=== PATIENT | female | born 1950 | race Caucasian/White ===

== ENCOUNTER → 2017-09-23 | Outpatient (CLI) | payer MEDICARE, OTHER ==
--- NOTE | 2017-09-27 08:48 | MM ---
Reason for exam: screening (asymptomatic). Last mammogram was performed 2 years and 2 months ago. History: Patient is postmenopausal. Left Breast Aspiration of the left breast. Took hormonal contraceptives for 2 years. Physical Findings: A clinical breast exam by your physician is recommended on an annual basis and results should be correlated with mammographic findings. MG 3D Screening Mammo W/Cad Bilateral CC and MLO view(s) were taken. Prior study comparison: July 11, 2015, bilateral MG 3d screening mammo w/cad. August 03, 2012, bilateral digital screening mammo w/CAD. The breast tissue is heterogeneously dense. This may lower the sensitivity of mammography. No significant changes when compared with prior studies. ASSESSMENT: Negative, BI-RAD 1 RECOMMENDATION: Routine screening mammogram of both breasts in 1 year.
== END | disposition home or self-care (01) ==
LOC: RADMAMWWP 09:08
PROVIDERS: ATTEND Family Medicine
DX: Z12.31 Encounter for screening mammogram for malignant neoplasm of breast (principal)
CPT/HCPCS: 77063; 77067

== ENCOUNTER → 2019-05-29 | Outpatient (CLI) | payer MEDICARE ==
--- NOTE | 2019-05-31 09:46 | MM ---
Reason for exam: screening (asymptomatic). Last mammogram was performed 1 year and 8 months ago. History: Patient is postmenopausal. Left Breast Aspiration of the left breast. Took hormonal contraceptives for 2 years. Physical Findings: A clinical breast exam by your physician is recommended on an annual basis and results should be correlated with mammographic findings. MG 3D Screening Mammo W/Cad Bilateral CC and MLO view(s) were taken. XCCL view(s) were taken of the left breast. Prior study comparison: September 23, 2017, bilateral MG 3d screening mammo w/cad. July 11, 2015, bilateral MG 3d screening mammo w/cad. The breast tissue is heterogeneously dense. This may lower the sensitivity of mammography. No significant changes when compared with prior studies. ASSESSMENT: Benign, BI-RAD 2 RECOMMENDATION: Routine screening mammogram of both breasts in 1 year.
== END | disposition home or self-care (01) ==
LOC: RADMAMWWP 13:44
PROVIDERS: ATTEND Family Medicine
DX: Z12.31 Encounter for screening mammogram for malignant neoplasm of breast (principal)
CPT/HCPCS: 77063; 77067

== ENCOUNTER 2019-06-06 10:13 | Day surgery (SDC) | payer MEDICARE ==
--- NOTE | 2019-06-06 08:54 | P.GSHP ---
History of Present Illness H&P Date: 06/06/19 CHIEF COMPLAINT: Colon screen HISTORY OF PRESENT ILLNESS: The patient is a 69-year-old female who presents for colon screen. Lower endoscopy was offered for further evaluation and management. PAST MEDICAL HISTORY: Please see list. PAST SURGICAL HISTORY: Please see list. MEDICATIONS: Please see list. ALLERGIES: Please see list. SOCIAL HISTORY: No illicit drug use FAMILY HISTORY: No reports of Crohn disease or ulcerative colitis. REVIEW OF ORGAN SYSTEMS: CONSTITUTIONAL: No reports of fevers or chills. PHYSICAL EXAM: VITAL SIGNS: Stable GENERAL: Well-developed pleasant in no acute distress. HEENT: No scleral icterus. Extraocular movements grossly intact. Moist buccal mucosa. NECK: Supple without lymphadenopathy. CHEST: Unlabored respirations. Equal bilateral excursions. CARDIOVASCULAR: Regular rate and rhythm. Distal 2+ pulses. ABDOMEN: Soft, nontender, nondistended. MUSCULOSKELETAL: No clubbing, cyanosis, or edema. ASSESSMENT: 1. Colon screen. PLAN: 1. Recommend proceeding with a lower endoscopy Past Medical History Past Medical History: GERD/Reflux, Hyperlipidemia, Hypertension, Sleep Apnea/CPAP/BIPAP Additional Past Medical History / Comment(s): SVT,uses cpap History of Any Multi-Drug Resistant Organisms: None Reported Past Surgical History: Adenoidectomy, Orthopedic Surgery, Tonsillectomy Additional Past Surgical History / Comment(s): colonoscopy Past Anesthesia/Blood Transfusion Reactions: Motion Sickness Additional Past Anesthesia/Blood Transfusion Reaction / Comment(s): no hx blood transfusion Smoking Status: Never smoker Past Alcohol Use History: Occasional Past Drug Use History: None Reported - Past Family History Father Family Medical History: Myocardial Infarction (DE) Additional Family Medical History / Comment(s): passe away at age 52 Mother Family Medical History: Osteoarthritis (OA), Thyroid Disorder Additional Family Medical History / Comment(s): living 95 Medications and Allergies Home Medications Medication Instructions Recorded Confirmed Type Fenofibrate 160 mg PO DAILY 04/12/16 04/14/16 History Multivit-Min/Iron/Folic/Lutein 1 each PO DAILY 04/12/16 04/12/16 History [Centrum Silver Women Tablet] Pravastatin Sodium 40 mg PO HS 04/12/16 04/14/16 History RABEprazole SODIUM [Aciphex] 20 mg PO QAM 04/12/16 04/14/16 History Triamterene-Hctz 37.5-25Mg 1 cap PO DAILY 04/12/16 04/14/16 History [Dyazide 37.5-25 Capsule] Verapamil HCl [Verapamil ER Pm] 100 mg PO HS 04/12/16 04/14/16 History buPROPion HCL [Bupropion HCl Sr] 150 mg PO QAM 04/12/16 04/14/16 History Allergies Allergy/AdvReac Type Severity Reaction Status Date / Time niacin Allergy "hot Verified 04/12/16 14:59 flashes" thimerosal Allergy "eyes burn Verified 04/12/16 14:59 and water with swelling" chlorthalidone AdvReac Rapid Verified 04/12/16 15:14 Heart Rate
[2019-06-06 11:01] VITALS: TEMP 97.9
[2019-06-06] MEDS ORDERED: LIDOCAINE 1% 20 ML VIAL (10MG/ML) FOR IV START INTRADERMA ONE (11:06)
[2019-06-06] MEDS ORDERED: LACTATED RINGERS 1,000 ML IV ONE (11:06)
[2019-06-06] MEDS ORDERED: PROPOFOL 10 MG/ML 20 ML VIAL IV ONE (11:50)
--- NOTE | 2019-06-06 12:35 | P.PCN ---
Date of Procedure: 06/06/19 Description of Procedure: PREOPERATIVE DIAGNOSIS: Personal history of colon polyps Change in bowel habits POSTOPERATIVE DIAGNOSIS: Personal history of colon polyps Change in bowel habits Diverticulosis, scattered. OPERATION: Colonoscopy to the ileocecal valve and appendiceal orifice. SURGEON: Sunita Locke MD. ANESTHESIA: MAC. INDICATIONS: The patient is a 69-year-old female who presents with change in bowel habits and personal history of colon polyps. Last colonoscopy 3 years ago. Benefits and risks were described and informed consent was obtained. DESCRIPTION OF PROCEDURE: The patient had undergone Gatorade, MiraLAX and Dulcolax prep. She had been brought into the operating room and laid in the left lateral decubitus position. After adequate intravenous sedation, the rectum was examined with 2% lidocaine jelly. No external hemorrhoids were encountered. The rectal tone was within normal limits. Abdominal pressure was used to advanced through a very tortuous sigmoid colon. No lesions were palpated in the rectal vault. An Olympus colonoscope was advanced until the ileocecal valve and appendiceal orifice were clearly viewed. The prep was excellent with clear visualization of the mucosal folds. The scope was removed with visualization of each mucosal fold. Sigmoid diverticulosis was encountered. No colonic polyps were found. No evidence of focal colitis was found. Retroflexion of the scope demonstrated grade 1 internal hemorrhoids without active bleeding or inflammation. The colon was desufflated. The patient had tolerated the procedure well. Withdrawal time was over 6 minutes. FINDINGS: Aronchick preparation quality scale 1 (1-5) Internal hemorrhoids, grade 1 No external prolapsed hemorrhoids. No arteriovenous malformations. No adenomatous polyps. No focal colitis. Sigmoid diverticulosis, moderate Highly redundant sigmoid colon RECOMMENDATIONS: Lower endoscopy in 3 years, 2021 or Cologuard Plan - Discharge Summary New Discharge Prescriptions: No Action buPROPion HCL [Bupropion HCl Sr] 150 mg PO QAM Triamterene-Hctz 37.5-25Mg [Dyazide 37.5-25 Capsule] 1 cap PO DAILY Multivit-Min/Iron/Folic/Lutein [Centrum Silver Women Tablet] 1 each PO DAILY Fenofibrate 160 mg PO DAILY Verapamil HCl [Verapamil ER Pm] 100 mg PO HS RABEprazole SODIUM [Aciphex] 20 mg PO QAM Pravastatin Sodium 40 mg PO HS Discharge Medication List Fenofibrate 160 mg PO DAILY 04/12/16 [History] Multivit-Min/Iron/Folic/Lutein [Centrum Silver Women Tablet] 1 each PO DAILY 04/12/16 [History] Pravastatin Sodium 40 mg PO HS 04/12/16 [History] RABEprazole SODIUM [Aciphex] 20 mg PO QAM 04/12/16 [History] Triamterene-Hctz 37.5-25Mg [Dyazide 37.5-25 Capsule] 1 cap PO DAILY 04/12/16 [History] Verapamil HCl [Verapamil ER Pm] 100 mg PO HS 04/12/16 [History] buPROPion HCL [Bupropion HCl Sr] 150 mg PO QAM 04/12/16 [History] Follow up Appointment(s)/Referral(s): Sunita Locke MD [STAFF PHYSICIAN] - 06/12/19 Patient Instructions/Handouts: Diverticulosis Diet (GEN), Diverticulosis (DC) Activity/Diet/Wound Care/Special Instructions: Recommend Cologaurd in 3 years or colonoscopy Discharge Disposition: HOME SELF-CARE
[2019-06-06 13:11] VITALS: RESP 17
[2019-06-06 13:29] VITALS: BP 127/81; PULSE 77
== END 2019-06-06 13:42 | disposition home or self-care (01) ==
LOC: ORWHC2ENDO 10:13
PROVIDERS: ATTEND Surgery Plastic and Reconstructive Surgery
DX: R19.4 Change in bowel habit (principal); K64.8 Other hemorrhoids; K57.30 Diverticulosis of large intestine without perforation or abscess without bleeding; Q43.8 Other specified congenital malformations of intestine; Z86.010 Personal history of colon polyps; K21.9 Gastro-esophageal reflux disease without esophagitis; E78.5 Hyperlipidemia, unspecified; I10 Essential (primary) hypertension; G47.30 Sleep apnea, unspecified; I47.1 Supraventricular tachycardia; F32.9 Major depressive disorder, single episode, unspecified; Z99.89 Dependence on other enabling machines and devices; Z90.89 Acquired absence of other organs; Z98.890 Other specified postprocedural states; Z91.89 Other specified personal risk factors, not elsewhere classified; Z79.899 Other long term (current) drug therapy; Z88.8 Allergy status to other drugs, medicaments and biological substances; Z91.048 Other nonmedicinal substance allergy status; Z82.49 Family history of ischemic heart disease and other diseases of the circulatory system; Z82.61 Family history of arthritis; Z83.49 Family history of other endocrine, nutritional and metabolic diseases
CPT/HCPCS: 45378; J2704

== ENCOUNTER → 2020-07-21 | Outpatient (CLI) | payer MEDICARE ==
--- NOTE | 2020-07-22 07:51 | MM ---
Reason for exam: clinical finding. Last mammogram was performed 1 year and 2 months ago. History: Patient is postmenopausal. Left Breast Aspiration of the left breast. Took hormonal contraceptives for 2 years. Physical Findings: Nurse did not find any significant physical abnormalities on exam. MG 3D Diag Mammo W/Cad JOSE MIGUEL Bilateral CC and MLO view(s) were taken. XCCL view(s) were taken of the left breast. Prior study comparison: May 29, 2019, bilateral MG 3d screening mammo w/cad. September 23, 2017, bilateral MG 3d screening mammo w/cad. The breast tissue is heterogeneously dense. This may lower the sensitivity of mammography. Benign appearing bilateral calcifications. No significant new findings when compared with previous films. These results were verbally communicated with the patient and result sheet given to the patient on 07/21/20. ASSESSMENT: Benign, BI-RAD 2 RECOMMENDATION: Routine screening mammogram of both breasts in 1 year.
--- NOTE | 2020-07-22 07:52 | USB ---
Reason for exam: clinical finding. History: Patient is postmenopausal. Left Breast Aspiration of the left breast. Took hormonal contraceptives for 2 years. US Breast RT Right complete breast ultrasound includes all four quadrants, the retroareolar region and axilla. Finding demonstrates a 0.2 x 0.2 x 0.2cm lesion too small to characterize at 12 o'clock and a 2.0 x 1.3 x 0.6cm oval lymph node at the axilla. These results were verbally communicated with the patient and result sheet given to the patient on 07/21/20. ASSESSMENT: Probably benign, BI-RAD 3 RECOMMENDATION: Follow-up diagnostic mammogram and ultrasound of the right breast in 6 months.
== END | disposition home or self-care (01) ==
LOC: RADMAMWWP 14:11
PROVIDERS: ATTEND Family Medicine
DX: N64.4 Mastodynia (principal)
CPT/HCPCS: 77066; 76641; G0279; 77062

== ENCOUNTER → 2020-09-16 | Outpatient (CLI) | payer MEDICARE ==
--- NOTE | 2020-09-16 13:24 | CONS ---
CONSULTATION This is a consultation note for sleep apnea. This 70-year-old female patient was diagnosed having QAMAR back in 2014. At that time she had an AHI of 51. She had some mild central events. Yet the majority of the events were obstructive in nature. The patient was given APAP, minimum pressure of 4, maximum pressure of 9 under the supervision of Dr. Gonsalez. She has used the machine successfully over the past 4-5 years and she has been very compliant. Recently over the past year she has been having difficulties and the machine is waking her up in the middle of the night. She is able to initiate sleep yet in the middle of night around 1 a.m. or 2 a.m. She would wake up and she is having difficulties in going back to sleep. As such, she quit the machine several nights and she felt better and she is feeling much more refreshed while off the machine. She has lost a significant amount of weight. Her weight was 182 and she is currently down to 153. At times, she is still snoring. She goes to bed around 11 o'clock to midnight and she is waking up somewhere between 5:30 and 7 a.m. in the morning. No major hypersomnia or sleepiness during the day. No nighttime chest pain, shortness of breath, heartburn or angina. No issues with memory, concentration, or no issues with any trouble paying attention. No falling asleep while driving. PAST MEDICAL HISTORY: 1. TMJ. 2. Hyperlipidemia. 3. Chronic anxiety and depression. 4. Acid reflux. 5. Remote history of supraventricular tachycardia. 6. Obstructive sleep apnea. PAST SURGICAL HISTORY: Past surgical history includes tonsils and adenoids removed and foot surgery. DRUG ALLERGIES: VITAMIN D. OUTPATIENT MEDICATIONS: Outpatient medications include rabeprazole 20 mg p.o. daily, verapamil 100 mg p.o. daily, pravastatin 40 mg p.o. daily and Zoloft 50 mg p.o. daily. SOCIAL HISTORY: Nonsmoker. No history of alcoholism. No history of IV drugs. FAMILY HISTORY: Negative for obstructive sleep apnea. Her mother has hypertension. Father has angina and heart disease. Maternal grandmother had a stroke. Mother had arthritis. Father had COPD. Grandmother in both parents were snorers, yet the obstructive sleep apnea was not confirmed. Her mother has thyroid disease and she had also chronic anemia. REVIEW OF SYSTEMS: Fourteen-point review of system was done and positive findings are mentioned in history of present illness. PHYSICAL EXAMINATION: VITAL SIGNS: BP is 153/85, pulse 82, respirations 16, temperature 98.3, saturation 98% on room air. Height is 5 feet 5 inches. Weight is 153. BMI is 25. GENERAL APPEARANCE: Calm, comfortable. HEAD: Atraumatic, normocephalic. NECK: Supple. Micrognathia is present. Minimum grinding of the teeth. No goiter or neck masses. Mallampati class 4. LUNGS: Clear to auscultation. HEART: Sounds are regular rate and rhythm. Normal S1, S2. No S3, no S4. No murmurs. ABDOMEN: Soft, nontender. No organomegaly. EXTREMITIES: No edema. No cyanosis or clubbing. NEUROLOGIC: Awake and alert. There is no focal neurological deficit. IMPRESSION: 1. Previous history of obstructive sleep apnea, severe, with an AHI of 51 based on the sleep study that was done in 2014. The patient currently is unable to tolerate the CPAP unit. She has lost around 30 pounds. It is possible that her obstructive sleep apnea is improved and the patient she may not need CPAP therapy especially the patient is waking up frequently in the middle of the night, unable to tolerate the treatment. 2. Micrognathia. 3. TMJ. 4. Acid reflux. 5. Hyperlipidemia. 6. Chronic anxiety/depression. 7. Remote history of supraventricular tachycardia. PLAN: 1. Stop CPAP therapy for now. 2. Obtain a home sleep study to re-evaluate the presence and severity of obstructive sleep apnea and if not needed will quit taking the treatment. This will largely depend on the results of the home sleep study. The patient is otherwise doing well. Continue monitoring the patient. We will review the home sleep study and get back to the patient. MMODL / IJN: [id number] /
== END | disposition home or self-care (01) ==
LOC: SLEEP 10:21
PROVIDERS: ATTEND Internal Medicine Critical Care Medicine
DX: M26.09 Other specified anomalies of jaw size (principal); M26.609 Unspecified temporomandibular joint disorder, unspecified side; K21.9 Gastro-esophageal reflux disease without esophagitis; E78.5 Hyperlipidemia, unspecified; F41.9 Anxiety disorder, unspecified; F32.9 Major depressive disorder, single episode, unspecified; Z86.79 Personal history of other diseases of the circulatory system; Z99.89 Dependence on other enabling machines and devices
CPT/HCPCS: 99211

== ENCOUNTER → 2021-03-05 | Outpatient (CLI) | payer MEDICARE ==
--- NOTE | 2021-03-06 10:22 | MM ---
Reason for exam: follow-up at short interval from prior study. Last mammogram was performed 7 months ago. History: Patient is postmenopausal. Left Breast Aspiration of the left breast. Took hormonal contraceptives for 2 years. Physical Findings: Nurse did not find any significant physical abnormalities on exam. MG 3D Diag Mammo W/Cad RT CC, MLO, and XCCL view(s) were taken of the right breast. Prior study comparison: July 21, 2020, bilateral MG 3d diag mammo w/cad [facility]SE [facility]IGUEL. May 29, 2019, bilateral MG 3d screening mammo w/cad. The breast tissue is heterogeneously dense. This may lower the sensitivity of mammography. No significant new findings when compared with previous films. These results were verbally communicated with the patient and result sheet given to the patient on 03/05/21. ASSESSMENT: Incomplete: need additional imaging evaluation, BI-RAD 0 RECOMMENDATION: Ultrasound of the right breast. (follow up from 07/21/20)
--- NOTE | 2021-03-06 10:23 | USB ---
Reason for exam: additional evaluation requested from abnormal screening. History: Patient is postmenopausal. Left Breast Aspiration of the left breast. Took hormonal contraceptives for 2 years. US Breast Limited RT Right limited breast ultrasound including focal area of concern, retroareolar and axilla demonstrates a 0.2 x 0.3 x 0.2cm oval, cystic lesion at 12 o'clock, benign appearing, stable and a 1.7 x 1.1 x 0.7cm lymph node at the axilla, probably reactive. These results were verbally communicated with the patient and result sheet given to the patient on 03/05/21. ASSESSMENT: Benign, BI-RAD 2 RECOMMENDATION: Routine screening mammogram of both breasts in 5 months. Back on schedule for July 2021.
== END | disposition home or self-care (01) ==
LOC: RADMAMWWP 13:28
PROVIDERS: ATTEND Family Medicine
DX: N63.10 Unspecified lump in the right breast, unspecified quadrant (principal); N64.59 Other signs and symptoms in breast
CPT/HCPCS: 77065; 76642; G0279; 77061

== ENCOUNTER → 2021-11-09 | Outpatient (CLI) | payer MEDICARE ==
--- NOTE | 2021-11-11 09:06 | MM ---
Reason for exam: screening (asymptomatic). Last mammogram was performed 8 months ago. History: Patient is postmenopausal. Left Breast Aspiration of the left breast. Took hormonal contraceptives for 2 years. Physical Findings: A clinical breast exam by your physician is recommended on an annual basis and results should be correlated with mammographic findings. MG 3D Screening Mammo W/Cad Bilateral CC and MLO view(s) were taken. Prior study comparison: March 05, 2021, right breast MG 3d diag mammo w/cad RT. July 21, 2020, bilateral MG 3d diag mammo w/cad [facility]SE MIGUEL. May 29, 2019, bilateral MG 3d screening mammo w/cad. The breast tissue is heterogeneously dense. This may lower the sensitivity of mammography. New 1.1cm circumscribed mass lateral subareolar left breast. Diffuse and regional punctate calcifications redemonstrated bilaterally. ASSESSMENT: Incomplete: need additional imaging evaluation, BI-RAD 0 RECOMMENDATION: Ultrasound of the left breast. [facility] will attempt to contact patient to return for ultrasound.
== END | disposition home or self-care (01) ==
LOC: RADMAMWWP 16:43
PROVIDERS: ATTEND Family Medicine
DX: Z12.31 Encounter for screening mammogram for malignant neoplasm of breast (principal); Z78.0 Asymptomatic menopausal state
CPT/HCPCS: 77063; 77067

== ENCOUNTER → 2021-11-17 | Outpatient (CLI) | payer MEDICARE ==
--- NOTE | 2021-11-17 10:26 | USB ---
Reason for exam: additional evaluation requested from abnormal screening. History: Patient is postmenopausal. Left Breast Aspiration of the left breast. Took hormonal contraceptives for 2 years. Physical Findings: A clinical breast exam by your physician is recommended on an annual basis and results should be correlated with mammographic findings. US Breast Workup Limited LT Left limited breast ultrasound including focal area of concern, retroareolar and axilla demonstrates a 1.1 x 0.8 x 1.0cm oval, cystic lesion at lateral subareolar breast likely mammographic correlate and a 0.5 x 0.4cm oval, hypoechoic lesion at the posterior, medial nipple possible debris filled cyst, 6 month follow up recommended. Scanned medial and lateral left subareolar. These results were verbally communicated with the patient and result sheet given to the patient on 11/17/21. ASSESSMENT: Probably benign, BI-RAD 3 RECOMMENDATION: Follow-up diagnostic mammogram and ultrasound of the left breast in 6 months.
== END | disposition home or self-care (01) ==
LOC: RADUSWWP 09:39
PROVIDERS: ATTEND Family Medicine
DX: R92.8 Other abnormal and inconclusive findings on diagnostic imaging of breast (principal); Z78.0 Asymptomatic menopausal state

== ENCOUNTER → 2022-05-31 | Outpatient (CLI) | payer MEDICARE ==
--- NOTE | 2022-05-31 10:21 | MM ---
Reason for Exam: Follow-up at short interval from prior study. Last screening mammogram was performed 6 month(s) ago. Patient History: Menarche at age 12. First Full-Term at age 26. Postmenopausal. Patient used Hormonal Contraceptives for 2 years. Cyst Aspiration on the Left side. Risk Values: Gwendolyn 5 year model risk: 1.8%. NCI Lifetime model risk: 4.1%. Prior Study Comparison: 07/21/2020 Bilateral Diagnostic Mammogram, [facility]. 03/05/2021 Right Diagnostic Mammogram, [facility]. 11/09/2021 Bilateral Screening Mammogram, [facility]. Tissue Density: Left: The breast tissue is heterogeneously dense. This may lower the sensitivity of mammography. Findings: Analyzed By CAD. The previous lateral subareolar mass has resolved. Redemonstrated wall posterior upper outer quadrant left breast. No significant change from prior exams. Overall Assessment: Incomplete: need additional imaging evaluation, BI-RAD 0 Management: Diagnostic Breast Ultrasound of the left breast. As follow-up from the patient's prior study. Electronically signed and approved by: Hosea Painting M.D. Radiologist
--- NOTE | 2022-05-31 10:39 | USB ---
Reason for Exam: Follow-up at short interval from prior study. Patient History: Menarche at age 12. First Full-Term at age 26. Postmenopausal. Patient used Hormonal Contraceptives for 2 years. Cyst Aspiration on the Left side. Risk Values: Gwendolyn 5 year model risk: 1.8%. NCI Lifetime model risk: 4.1%. Technique: Method: Targeted. Prior Study Comparison: 07/21/2020 Bilateral Diagnostic Mammogram, [facility]. 03/05/2021 Right Diagnostic Mammogram, [facility]. 11/09/2021 Bilateral Screening Mammogram, [facility]. Findings: The periareolar of the left breast and the retroareolar of the left breast were scanned. Targeted ultrasound left breast both medial and lateral to the nipple at site of previous abnormalities. The previous lateral subareolar cyst has resolved as also shown on mammogram. The medial subareolar debris filled cyst remains unchanged measuring 4 x 4 x 3 mm. Overall Assessment: Benign, BI-RAD 2 Management: Screening Mammogram of both breasts in 6 months. 1. Patient should continue monthly self breast exams. 2. A clinical breast exam by your physician is recommended on an annual basis. 3. This exam should not preclude additional follow-up of suspicious palpable abnormalities. Electronically signed and approved by: Hosea Painting M.D. Radiologist
== END | disposition home or self-care (01) ==
LOC: RADMAMWWP 09:31
PROVIDERS: ATTEND Family Medicine
DX: R92.8 Other abnormal and inconclusive findings on diagnostic imaging of breast (principal); Z78.0 Asymptomatic menopausal state
CPT/HCPCS: 77065; 76642; G0279; 77061

== ENCOUNTER 2022-07-18 10:38 | Emergency (ER) | payer MEDICARE ==
--- NOTE | 2022-07-18 11:24 | ED ---
General Adult HPI - General Chief complaint: Upper Respiratory Infection Stated complaint: Congestion Time Seen by Provider: 07/18/22 11:12 Source: patient, RN notes reviewed Mode of arrival: ambulatory Limitations: no limitations - History of Present Illness Initial comments: Patient is a pleasant 72-year-old female presenting to the emergency Department with congestion. Onset of symptoms was around 10 days ago. Patient did have rhinorrhea however yesterday turned into nasal congestion. Patient is having difficulty breathing through her nose positive so congestion. Patient does have sinus discomfort. Patient's ears felt plugged last night. Patient has been having cough. No dyspnea - Related Data Home Medications Medication Instructions Recorded Confirmed Fenofibrate 160 mg PO DAILY 04/12/16 06/06/19 Multivit-Min/Iron/Folic/Lutein 1 each PO DAILY 04/12/16 06/06/19 [Centrum Silver Women Tablet] Pravastatin Sodium 40 mg PO HS 04/12/16 06/06/19 RABEprazole SODIUM [Aciphex] 20 mg PO QAM 04/12/16 06/06/19 Triamterene-Hctz 37.5-25Mg 1 cap PO DAILY 04/12/16 06/06/19 [Dyazide 37.5-25 Capsule] Verapamil HCl [Verapamil ER Pm] 100 mg PO HS 04/12/16 06/06/19 buPROPion HCL [Bupropion HCl Sr] 150 mg PO QAM 04/12/16 06/06/19 Allergies Allergy/AdvReac Type Severity Reaction Status Date / Time niacin Allergy "hot Verified 07/18/22 10:51 flashes" thimerosal Allergy "eyes burn Verified 07/18/22 10:51 and water with swelling" chlorthalidone AdvReac Rapid Verified 07/18/22 10:51 Heart Rate Review of Systems ROS Statement: Those systems with pertinent positive or pertinent negative responses have been documented in the HPI. ROS Other: All systems not noted in ROS Statement are negative. Constitutional: Denies: fever Eyes: Denies: eye pain ENT: Reports: as per HPI, congestion Respiratory: Reports: cough. Denies: dyspnea Cardiovascular: Denies: chest pain Endocrine: Denies: fatigue Gastrointestinal: Denies: abdominal pain Genitourinary: Denies: dysuria Musculoskeletal: Denies: back pain Skin: Denies: rash Neurological: Denies: weakness Past Medical History Past Medical History: GERD/Reflux, Hyperlipidemia, Hypertension, Sleep Apnea/CPAP/BIPAP Additional Past Medical History / Comment(s): SVT,uses cpap History of Any Multi-Drug Resistant Organisms: None Reported Past Surgical History: Adenoidectomy, Orthopedic Surgery, Tonsillectomy Additional Past Surgical History / Comment(s): colonoscopy Past Anesthesia/Blood Transfusion Reactions: Motion Sickness Additional Past Anesthesia/Blood Transfusion Reaction / Comment(s): no hx blood transfusion Smoking Status: Never smoker Past Alcohol Use History: Occasional Past Drug Use History: None Reported - Past Family History Father Family Medical History: Myocardial Infarction ([place]) Additional Family Medical History / Comment(s): passe away at age 52 Mother Family Medical History: Osteoarthritis (OA), Thyroid Disorder Additional Family Medical History / Comment(s): living 95 General Exam Limitations: no limitations General appearance: alert, in no apparent distress Head exam: Present: normocephalic Eye exam: Present: normal appearance ENT exam: Present: TM's normal bilaterally, other (Tenderness, especially over the maxillary sinuses) Neck exam: Present: normal inspection Respiratory exam: Present: normal lung sounds bilaterally. Absent: respiratory distress Cardiovascular Exam: Present: regular rate, normal rhythm GI/Abdominal exam: Present: soft. Absent: tenderness Extremities exam: Present: normal inspection. Absent: pedal edema, calf tenderness Neurological exam: Present: alert Psychiatric exam: Present: normal affect, normal mood Skin exam: Present: normal color Course Vital Signs 07/18/22 07/18/22 10:48 11:24 Temperature 98 F Pulse Rate 101 H Respiratory 20 18 Rate O2 Sat by Pulse 99 Oximetry Medical Decision Making - Medical Decision Making Patient updated on results and plan. Patient was offered chest x-ray however did refuse. - Lab Data Lab Results 07/18/22 07/18/22 Range/Units 10:53 10:53 Coronavirus (PCR) Not Detected (Not Detectd) Influenza Type A RNA Not Detected (Not Detectd) Influenza Type B (PCR) Detected H (Not Detectd) Disposition Clinical Impression: Influenza Disposition: HOME SELF-CARE Condition: Stable Instructions (If sedation given, give patient instructions): Influenza (ED) Additional Instructions: Please do follow-up with primary care physician in the next couple days for recheck. Return for difficulty breathing, fevers, worsening or changing symptoms or any other concerns. Kykk-ovr-fwatumx saline nasal spray. Kwpc-zxe-fmqdbzj vitamin C, vitamin D, and seemed. Is patient prescribed a controlled substance at d/c from ED?: No Referrals: Winston Hawkins DO [Primary Care Provider] - 1-2 days Time of Disposition: 12:21
[2022-07-18 12:43] VITALS: BP 149/100; PULSE 82; RESP 16; TEMP 98
== END 2022-07-18 12:43 | disposition home or self-care (01) ==
LOC: EC 10:38
DX: J11.1 Influenza due to unidentified influenza virus with other respiratory manifestations (principal); I10 Essential (primary) hypertension; K21.9 Gastro-esophageal reflux disease without esophagitis; E78.5 Hyperlipidemia, unspecified; Z79.899 Other long term (current) drug therapy; Z88.3 Allergy status to other anti-infective agents; Z88.2 Allergy status to sulfonamides; Z88.7 Allergy status to serum and vaccine; Z20.822 Contact with and (suspected) exposure to COVID-19
CPT/HCPCS: 87502; 87635; 99283

== ENCOUNTER → 2023-01-11 | Outpatient (CLI) | payer MEDICARE ==
--- NOTE | 2023-01-12 18:45 | MM ---
Reason for Exam: Screening (asymptomatic). Last mammogram was performed 1 year(s) and 2 month(s) ago. Patient History: Menarche at age 12. First Full-Term at age 26. Postmenopausal. Patient has history of breast feeding. Patient used Hormonal Contraceptives for 2 years. Cyst Aspiration on the Left side. Risk Values: Gwendolyn 5 year model risk: 1.8%. NCI Lifetime model risk: 4.1%. Prior Study Comparison: 09/23/2017 Bilateral Screening Mammogram, [facility]. 05/29/2019 Bilateral Screening Mammogram, [facility]. 07/21/2020 Bilateral Diagnostic Mammogram, [facility]. 03/05/2021 Right Diagnostic Mammogram, [facility]. 11/09/2021 Bilateral Screening Mammogram, [facility]. 05/31/2022 Left MG 3D diag mammo w/cad LT, [facility]. Tissue Density: The breast tissue is heterogeneously dense. This may lower the sensitivity of mammography. Findings: Analyzed By CAD. Pattern appears symmetrical and stable. Benign scattered calcifications are present bilaterally. No significant interval changes are evident. No suspicious groups of microcalcifications, spiculated or lobular masses, architectural distortion or other secondary signs of malignancy are mammographically apparent. Overall Assessment: Benign, BI-RAD 2 Management: Screening Mammogram of both breasts in 1 year. A negative mammogram report should not preclude additional follow up of suspicious palpable abnormalities. Patient should continue monthly self breast exam. A clinical breast exam by your physician is recommended on an annual basis and results should be correlated with mammographic findings. Electronically signed and approved by: Augustin Novoa D.O. Radiologis
== END | disposition home or self-care (01) ==
LOC: RADMAMWWP 12:56
PROVIDERS: ATTEND Family Medicine
DX: Z12.31 Encounter for screening mammogram for malignant neoplasm of breast (principal); Z78.0 Asymptomatic menopausal state
CPT/HCPCS: 77063; 77067

== ENCOUNTER → 2023-06-22 | Outpatient (CLI) | payer MEDICARE ==
--- NOTE | 2023-06-27 13:24 | CT ---
EXAMINATION TYPE: CT right knee - [facility] Protocol DATE OF EXAM: 06/22/2023 COMPARISON: None HISTORY: 73-year-old female M17.11 PRIMARY OSTEOARTHRITIS, RIGHT KNEE, pre-op right total knee CT DLP: 501.2 mGycm. Automated exposure control for dose reduction was used. TECHNIQUE: CT of the right knee for surgical planning purposes. Additional scanning through the pelvi s and both ankles. Coronal and sagittal reconstructions performed. FINDINGS: Mild degenerative change at the hips. No abnormal fluid collection in the pelvis or pelvic lymphadeno brett. Dyflf-ph-fitngybg joint effusion. No Johnson's cyst. There is tricompartmental osteoarthrosis, severe in the patellofemoral compartment especially along t he lateral facets. No gross abnormality at the ankles. IMPRESSION: Tricompartmental osteoarthrosis right knee, severe in the patellofemoral compartment. Imaging for khoa gical planning purposes.
== END | disposition home or self-care (01) ==
LOC: RADCTMAIN 14:20
PROVIDERS: ATTEND Orthopaedic Surgery
DX: Z01.818 Encounter for other preprocedural examination (principal); M17.11 Unilateral primary osteoarthritis, right knee; M21.061 Valgus deformity, not elsewhere classified, right knee

== ENCOUNTER → 2023-07-26 | Outpatient (CLI) | payer MEDICARE ==
[2023-07-26 15:04] LABS: Partial Thromboplastin Time 24.1 sec (22.0-30.0); Prothrombin Time 10.9 sec (10.0-12.5)
[2023-07-26 18:17] LABS: HCT 42.9 % (37.2-46.3); HGB 13.7 g/dL (12.0-15.0); MCH 30.5 pg (27.0-32.0); MCHC 31.9 g/dL (32.0-37.0); MCV 95.5 FL (80.0-97.0); Mean Platelet Volume 11.2 FL (9.5-12.2); NRBC Per 100 WBC 0 X 10*3/uL (0.00-0.01); Platelet Count 233 X 10*3/uL (140-440); RBC 4.49 X 10*6/uL (4.10-5.20); RDW 12.9 % (11.5-14.5)
[2023-07-26 18:28] LABS: ALT 29 U/L (8-44); AST 20 U/L (13-35); Albumin 4.5 g/dL (3.8-4.9); Albumin/Globulin Ratio 1.55 Ratio (1.60-3.17); Alkaline Phosphatase 67 U/L (41-126); BUN/Creat Ratio 23.14 Ratio (12.00-20.00); Blood Urea Nitrogen 16.2 mg/dL (9.0-27.0); Calcium 10.3 mg/dL (8.7-10.3); Carbon Dioxide 27.2 mmol/L (21.6-31.8); Chloride 103 mmol/L (96-109); Globulin 2.9 g/dL (1.6-3.3); Glucose 103 mg/dL (70-110); Sodium 140 mmol/L (135-145); Total Bilirubin 0.2 mg/dL (0.3-1.2); Total Protein 7.4 g/dL (6.2-8.2)
[2023-07-27 02:15] LABS: Appearance,Urine Clear (Clear); Bilirubin,Urine Negative (Negative); Blood,Urine Negative (Negative); Color,Urine Yellow (Yellow); Ketones,Urine Negative (Negative); Nitrite,Urine Negative (Negative); PH, Urine 5.5; Specific Gravity,Urine 1.011 (1.001-1.030); Urobilinogen,Urine 0.2 E.U./DL
[2023-07-27 02:19] LABS: Bacteria,Urine None Seen (None Seen)
== END | disposition home or self-care (01) ==
LOC: LABPAT 13:46
PROVIDERS: ATTEND Orthopaedic Surgery
DX: Z01.818 Encounter for other preprocedural examination (principal); M17.11 Unilateral primary osteoarthritis, right knee
CPT/HCPCS: 36415; 80053; 81001; 83036; 85027; 85610; 85730; 87070; 93005

== ENCOUNTER 2023-08-12 10:50 | Day surgery (SDC) | payer MEDICARE ==
[~2023-08-12 10:50] MED LIST: ACETAMINOPHEN TAB 500 MG TAB PO PRN; DEXAMETHASONE SOD PHOSPHATE 10 MG/ML 1 ML VIAL IV PRN; DOCUSATE 100 MG CAP PO PRN; FAMOTIDINE 20 MG/2 ML VIAL IVP PRN; KETOROLAC 15 MG/ML 1 ML VIAL IVP PRN; ONDANSETRON 4 MG/2 ML VIAL IVP PRN; ROPIVACAINE/EPI/CLONIDINE/KET 50 ML SYRINGE MISCELLANE PRN; TRANEXAMIC 1,000 MG/100ML-NACL 1,000 MG in SALINE 1 100ML.BAG IV PRN; TRANEXAMIC 1,000 MG/100ML-NACL 1,000 MG in SALINE 1 100ML.BAG IVPB PRN; oxyCODONE ER 10 MG TAB.ER.12H PO PRN
[2023-08-12] MEDS ORDERED: LACTATED RINGERS 1,000 ML IV SCH (11:07)
[2023-08-12] MEDS ORDERED: HYDROmorphone 0.5 MG/0.5 ML SYRINGE IVP PRN ×2 (11:07→16:51)
[2023-08-12] MEDS ORDERED: MIDAZOLAM 2 MG/2 ML VIAL IV PRN (11:07)
[2023-08-12] MEDS ORDERED: DOCUSATE 100 MG CAP PO STA (11:49)
[2023-08-12] MEDS ORDERED: MIDAZOLAM 2 MG/2 ML VIAL IVP ONE (12:02)
[2023-08-12] MEDS ORDERED: fentaNYL (PF) 50 MCG/ML 2 ML AMP IVP ONE (12:02)
--- NOTE | 2023-08-12 12:48 | P.ANPRN ---
Procedure Note - Anesthesia - Nerve Block Performed Right Adductor Canal Single Time Out Performed: Yes (1201) Date of Procedure: 08/12/23 Procedure Start Time: 12:02 Procedure Stop Time: 12:04 Location of Patient: PreOp Indication: Acute Post-Operative Pain, Requested by Surgeon Specifically requested for management of pain by DrPriyank: Joshua Dave Sedation Type: Sedate with meaningful contact maintained Preparation: Sterile Prep Position: Supine Catheter: None Needle Types: Pajunk Needle Gauge: 21 Ultrasound used to visualize needle placement: Yes Ultrasound used to observe medication spread: Yes Injectate: 0.5% Ropivacaine (see comment for volume) (15cc+ 10cc nacl pf) Blood Aspirated: No Pain Paresthesia on Injection Noted: No Resistance on Injection: Normal Image Stored and Saved: Yes Events: Uneventful and Well Tolerated
--- NOTE | 2023-08-12 12:49 | P.ANPRN ---
Procedure Note - Anesthesia - Nerve Block Performed Right iPack Single Time Out Performed: Yes (1201) Date of Procedure: 08/12/23 Procedure Start Time: 12:05 Procedure Stop Time: 12:07 Location of Patient: PreOp Indication: Acute Post-Operative Pain, Requested by Surgeon Specifically requested for management of pain by DrPriyank: Joshua Dave Sedation Type: Sedate with meaningful contact maintained Preparation: Sterile Prep Position: Supine Catheter: None Needle Types: Pajunk Needle Gauge: 21 Ultrasound used to visualize needle placement: Yes Ultrasound used to observe medication spread: Yes Injectate: 0.5% Ropivacaine (see comment for volume) (15cc+ 10cc nacl pf) Blood Aspirated: No Pain Paresthesia on Injection Noted: No Resistance on Injection: Normal Image Stored and Saved: Yes Events: Uneventful and Well Tolerated
[2023-08-12] MEDS ORDERED: ROPIVACAINE 5 MG/ML 30 ML VIAL ONE (14:08)
[2023-08-12] MEDS ORDERED: fentaNYL (PF) 50 MCG/ML 2 ML AMP ONE (14:08)
[2023-08-12] MEDS ORDERED: TRANEXAMIC 1,000 MG/100ML-NACL PREMIX BAG ONE (14:08)
[2023-08-12] MEDS ORDERED: PHENYLEPHRINE-0.9% NACL SYG 1,000 MCG/10 ML SYRINGE ONE (14:08)
[2023-08-12] MEDS ORDERED: SODIUM CHLORIDE 0.9% (PF) 10 ML VIAL ONE (14:08)
[2023-08-12] MEDS ORDERED: PROPOFOL 10 MG/ML 20 ML VIAL IV ONE (14:08)
[2023-08-12] MEDS ORDERED: SUCCINYLCHOLINE CHLORIDE 200 MG/10 ML VIAL IV ONE (14:08)
[2023-08-12] MEDS ORDERED: ePHEDrine 50 MG/ML 1 ML VIAL ONE (14:08)
[2023-08-12] MEDS ORDERED: ROCURONIUM 10 MG/ML (5 ML VIAL) IV ONE (14:08)
[2023-08-12] MEDS ORDERED: LIDOCAINE 1% INJ 10MG/ML (20 ML MDV) ONE (14:08)
[2023-08-12] MEDS ORDERED: NEOSTIGMINE 1 MG/ML 10 ML VIAL ONE (14:08)
[2023-08-12] MEDS ORDERED: GLYCOPYRROLATE 0.2 MG/ML 2 ML VIAL ONE (14:08)
[2023-08-12] MEDS ORDERED: IV FLUID CONTINUATION 1,000 ML IV ONE (14:13)
[2023-08-12] MEDS ORDERED: LACTATED RINGERS 1,000 ML IV ONE ×2 (15:45→17:36)
--- NOTE | 2023-08-12 16:50 | P.OP ---
Date of Procedure: 08/12/23 Preoperative Diagnosis: Severe right knee osteoarthritis Postoperative Diagnosis: Same Procedure(s) Performed: 1. Right total knee arthroplasty 2. Computer assisted musculoskeletal navigation using CT/MRI images Implants: 1. [place] [employer] CR Femur Size #3 2. [place] Triathlon [place] Tibial Base Size #3 3. [place] [employer] CS poly Size #9 4. [place] [employer] all poly patella, Size #29 Anesthesia: ONESIMOA, regional Surgeon: Joshua Dave Tagman #1: Pippa Rodriguez Estimated Blood Loss (ml): 100 IV fluids (ml): 900 Pathology: none sent Condition: stable Disposition: PACU Indications for Procedure: I met with the patient preoperatively in the office setting and discussed treatment of their symptomatic knee arthritis. They failed a long course of nonsurgical treatment and elected to proceed with an elective total knee replacement. I discussed the potential risks and complications at length and gave them ample time to ask questions. Risks discussed included: risks from anesthesia, superficial site surgical infection, acute and/or chronic periprosthetic joint infection, delayed wound healing, drainage, wound necrosis, instability, stiffness, stiffness requiring manipulation and/or revision surgery, damage to local blood vessels or nerves, aseptic loosening of the implants, extensor mechanism issues including disruption, patellar maltracking, avascular necrosis etc., continued or worsened knee pain, generalized dissatisfaction with surgical outcome, need for revision surgery, an inability to regain preinjury level of function, DVT, PE, other medical complications, and possibly loss of life or limb. The patient voiced their understanding that while these are the most common complications other less common complications are possible. They provided both their verbal and written consent to go forward with surgery. Operative Findings: Severe tricompartmental osteoarthritis with full-thickness cartilage loss in the patellofemoral and lateral compartment. Partial thickness cartilage loss in the medial compartment. Description of Procedure: The patient was identified in preoperative holding and the correct operative extremity was verified and marked with a marker. I reviewed the consent form with the patient at length. All of their questions were answered. The patient was given a block by anesthesia. They were then brought back to the operating room. They were transferred onto the operating room table where a general anesthetic, preoperative antibiotics, and tranexamic acid were administered by anesthesia. A tourniquet was applied to the proximal aspect of the operative extremity. The contralateral extremity was padded under the heel and secured to the operating room table with a nonsterile blue towel and tape. The ipsilateral arm was carefully draped across the patient's chest and secured with a pillow and foam. A post was applied over the lateral aspect of the ipsilateral thigh and a bolster was placed under the ipsilateral foot. I verified that the operative extremity was stable and the knee was flexed to 90. The operative extremity was then placed in a leg antunez, nonsterile drapes were applied, and the extremity was prepped and draped sterilely in the standard sterile fashion. Prior to starting surgery timeout was performed identifying the correct patient, operative extremity, and procedure. The leg was then elevated, exsanguinated with an Esmarch bandage, and the tourniquet was inflated. An anterior midline incision was made sharply with a scalpel. Once I had disse cted deep to the superficial fascial layer medial and lateral flaps were elevated. A medial parapatellar arthrotomy was created. Upon opening the knee joint there were diffuse arthritic changes in all 3 compartments. The anterior horn of the medial meniscus were sharply released and a medial release was performed around the posterior medial corner of the knee to facilitate retractor placement. The fat pad was excised with electrocautery. The patella was found to be severely arthritic and a provisional cut was made with a sagittal saw to facilitate mobilization of the extensor mechanism during the procedure. Remnants of the ACL and PCL were then excised from the notch. 4 mm pins were then placed within the incision in the medial distal femur and proximal tibia. Arrays were applied to the pins and I verified they were completely tightened. The knee was then registered with the Kynetx robot and manipulations in implant position were made to balance the knee and opitmize implant position. Using the Kynetx robotic saw all cuts were made in accordance with our plan. After all bony fragments had been removed the cuts were verified with the planar probe. The tibia was then subluxed forward and sized. The knee was brought into flexion and a lamina lead mason tender was placed to allow removal of the meniscal remnants both medially and laterally as well as posterior osteophytes. Local anesthetic was then infiltrated around the joint capsule. Trial implants were then placed within the knee. Range of motion and collateral ligament tension was then evaluated. Adjustments in implant size and position were then made accordingly. Once the knee was felt to be appropriately balanced the Robert pins were removed. The patella was then recut, sized, and punched. A trial patellar button was then placed. With the trial components in place, the patella tracked midline. The femur was then drilled and the trial component removed. The trial tibial component was then appropriately rotated, pinned, and prepared for the keel. All trial components were then removed from the knee. The knee was thoroughly irrigated with pulsatile lavage. Cement was prepared via vacuum mixing in a bowl on the back table. I then hand pressurized cement into the femur and tibia and placed the implants beginning with the tibial base tray and poly liner, femoral component, and finally the patellar button. All extruded cement was removed including from the pin sites. Once the cement had hardened the knee was evaluated one final time with the final polyethylene liner in place. The knee had full extension and flexion and felt stable to varus and valgus stress throughout the arc of motion. The tourniquet was released and with the tourniquet down the patella tracked midline. All bleeders were controlled with electrocautery. The knee was then soaked for 3 minutes with a dilute Betadine soak. The knee was thoroughly irrigated using 3 L of sterile saline and pulsatile lavage. A deep drain was placed. The extensor mechanism was then reapproximated using pop off Vicryl sutures followed by a running barbed suture. The knee was then closed in layers with a 0 strata fix for the deep fascial layer, 2-0 strata fix for the superficial subcutaneous layer and Monocryl and Steri-Strips for the skin. A sterile dressing and drain sponge were applied. I verified that all instrument, sponge, and sharp counts were correct. The patient was then transferred off the operating room table, extubated, and brought to recovery having tolerated the procedure well. Pippa Rodriguez DO was required as a skilled sales operations assistant for patient positioning, draping, exposure, placement of implants, closure of wound, and application of dressing. PLAN: The patient can weight-bear as tolerated on the operative extremity. DVT prophylaxis with aspirin 81 mg twice a day based on preoperative risk stratification. Follow-up in the office in 2 weeks for wound check and x-rays of the knee including an AP and lateral.
[2023-08-12] MEDS ORDERED: NA PHOS,M-B/NA PHOS,DI-BA 133 ML ENEMA RECTAL PRN (16:51)
[2023-08-12] MEDS ORDERED: HYDROcodone/APAP 10-325MG 1 EACH TAB PO PRN (16:51)
[2023-08-12] MEDS ORDERED: diazePAM 5 MG TAB PO PRN (16:51)
[2023-08-12] MEDS ORDERED: ONDANSETRON 4 MG/2 ML VIAL IVP PRN (16:51)
[2023-08-12] MEDS ORDERED: NALOXONE 0.4 MG/ML 1 ML VIAL IV PRN (16:51)
[2023-08-12] MEDS ORDERED: bisacodyL 10 MG SUPP RECTAL PRN (16:51)
[2023-08-12] MEDS ORDERED: hydrOXYzine pamoate 25 MG CAP PO PRN (16:51)
[2023-08-12] MEDS ORDERED: MAGNESIUM HYDROXIDE 2,400 MG/30 ML CUP PO PRN (16:51)
--- NOTE | 2023-08-12 17:15 | XR ---
EXAMINATION TYPE: XR knee limited RT, 2 views DATE OF EXAM: 08/12/2023 Comparison: None Clinical History: 73-year-old female Evaluation for Postop abnormality and alignment Findings: Images show placement of right total knee arthroplasty. Both distal femoral and proximal tibial compo nents of the prosthesis are well seated without periprosthetic fracture. Alignment grossly anatomic. There is anterior soft tissue swelling with soft tissue air as well as some intra-articular air relat ed to recent operation. A surgical drain is also present. Impression: Uncomplicated postoperative appearance right total knee arthroplasty.
[2023-08-12] MEDS: SODIUM CHLORIDE 0.9% 1,000 ML IV SCH (19:31)
[2023-08-12] MEDS ORDERED: SENNOSIDES-DOCUSATE SODIUM 1 EACH TAB PO SCH (21:00)
[2023-08-12] MEDS: ASPIRIN 81 MG PO SCH (21:18)
--- NOTE | 2023-08-12 23:19 | P.CONS ---
History of Present Illness - Reason for Consult Consult date: 08/12/23 - History of Present Illness Patient is a 73-year-old female with a PMH of palpitations, depression, and hyperlipidemia who was admitted to the hospital for elective right total knee replacement. The patient underwent the procedure earlier today and was seen postoperatively on the surgical unit. Reports ongoing 5 out of 10 pain of the right knee. Reported mild nausea without vomiting. Has been passing urine without difficulty. Denied experiencing chest discomfort, shortness of breath, fever, chills, cough, sore throat. Reports compliance with medications at home Review of systems: Pertinent positives and negatives as discussed in HPI, a complete review of systems was performed and all other systems are negative. Physical examination: Vital signs reviewed General: non toxic, no distress, appears at stated age, normal weight Derm: no unusual rashes/lesions, warm Head: atraumatic, normocephalic, symmetric Eyes: EOMI, no lid lag, anicteric sclera, pupils equal round reactive to light ENT: Nose and ears atraumatic Neck: No cervical lymphadenopathy, trachea midline, supple Mouth: no lip lesion, mucus membranes moist Cardiovascular: S1S2 reg, no murmur, positive dorsalis pedis pulse bilateral, no edema Lungs: CTA bilateral, no rhonchi, no rales, no accessory muscle use Abdominal: soft, nontender to palpation, no guarding Ext: muscle strength 5 out of 5 in all extremities grossly except right lower extremity postsurgical, right knee dressing in place clean and dry, no gross muscle atrophy, no contractures, Neuro: CN II-XI grossly intact, no gross focal neuro deficits Psych: Alert, oriented, appropriate affect Assessment: Chronic conditions: Hyperlipidemia, depression, palpitations Status post right total knee replacement Plan: Continue the following home medications: -Varapamin 100 mg po qhs -Bupropion 150 mg po qd -Pravachol 40 mg po qhs Defer management of pain control and DVT prophylaxis to primary surgery service Past Medical History Past Medical History: GERD/Reflux, Hyperlipidemia Additional Past Medical History / Comment(s): SVT, white coat syndrome, History of Any Multi-Drug Resistant Organisms: None Reported Past Surgical History: Adenoidectomy, Orthopedic Surgery, Tonsillectomy Additional Past Surgical History / Comment(s): colonoscopy, lft foot dislocated toe surgery, total right knee Past Anesthesia/Blood Transfusion Reactions: Motion Sickness Additional Past Anesthesia/Blood Transfusion Reaction / Comm: no hx blood transfusion Past Psychological History: No Psychological Hx Reported Smoking Status: Never smoker Past Alcohol Use History: Occasional Past Drug Use History: None Reported - Past Family History Father Family Medical History: Myocardial Infarction ([place]) Additional Family Medical History / Comment(s): passe away at age 52 Mother Family Medical History: Osteoarthritis (OA), Thyroid Disorder Additional Family Medical History / Comment(s): living 95 Medications and Allergies Home Medications Medication Instructions Recorded Confirmed Type Multivit-Min/Iron/Folic/Lutein 1 each PO DAILY 04/12/16 08/08/23 History [Centrum Silver Women Tablet] Pravastatin Sodium 40 mg PO HS 04/12/16 08/08/23 History RABEprazole SODIUM [Aciphex] 20 mg PO QAM 04/12/16 08/08/23 History Verapamil HCl [Verapamil ER Pm] 100 mg PO HS 04/12/16 08/08/23 History buPROPion HCL [Bupropion HCl Sr] 150 mg PO QAM 04/12/16 08/08/23 History Acetaminophen [Tylenol Arthritis] 650 mg PO BID 08/08/23 08/08/23 History Alendronate Sodium 70 mg PO WE 08/08/23 08/08/23 History valACYclovir HCL [Valacyclovir] 2,000 mg PO BID 08/08/23 08/08/23 History Allergies Allergy/AdvReac Type Severity Reaction Status Date / Time niacin Allergy "hot Verified 08/12/23 11:48 flashes" thimerosal Allergy "eyes burn Verified 08/12/23 11:48 and water with swelling" chlorthalidone AdvReac Rapid Verified 08/12/23 11:48 Heart Rate Physical Exam Vitals: Vital Signs Temp Pulse Resp BP Pulse Ox 08/12/23 20:40 69 123/72 100 08/12/23 20:25 69 116/70 99 08/12/23 20:10 76 118/75 97 08/12/23 19:55 75 114/71 98 08/12/23 19:25 73 114/70 98 08/12/23 19:10 78 124/73 99 08/12/23 18:55 77 122/71 92 L 08/12/23 18:40 78 127/75 93 L 08/12/23 17:32 94 L 08/12/23 17:24 81 12 119/65 99 08/12/23 17:09 76 8 L 119/677 98 08/12/23 16:54 77 16 122/72 97 08/12/23 16:39 83 16 146/83 97 08/12/23 16:25 97.4 F L 76 18 135/80 97 08/12/23 12:10 78 16 121/69 100 08/12/23 11:20 97 F L 100 16 152/81 98 Intake and Output 08/12/23 08/12/23 08/13/23 14:59 22:59 06:59 Intake Total 2049 1000 Output Total 150 Balance 2049 850 Intake: IV 2049 1000 Output: Estimated Blood Loss 150 Other: Weight 68.2 kg
[2023-08-13 02:57] VITALS: RESP 18
[2023-08-13] MEDS: SODIUM CHLORIDE 0.9% 1,000 ML IV SCH (02:59)
[2023-08-13] MEDS: HYDROcodone/APAP 5-325MG 1 EACH TAB PO PRN ×2 (03:01→12:24)
--- NOTE | 2023-08-13 08:31 | P.PN ---
Subjective Progress Note Date: 08/13/23 The patient has some pain and stiffness in her right knee but is otherwise well. Her only complaint this morning is that she feels "shaky." Denies chest pain or shortness of breath. Objective - Vital Signs Vital signs: Vital Signs Temp 97.7 F 08/13/23 01:15 Pulse 79 08/13/23 01:15 Resp 18 08/13/23 01:15 BP 112/70 08/13/23 01:15 Pulse Ox 100 08/13/23 01:15 FiO2 Intake & Output 08/12/23 08/13/23 08/13/23 18:59 06:59 18:59 Intake Total 3050 Output Total 150 580 Balance 2900 -580 Weight 68.2 kg 68.2 kg Intake: IV 3050 Output: Drainage 80 Right Knee 80 Urine 500 Estimated Blood Loss 150 Other: # Voids 1 - Exam Patient is resting comfortably in her bed. She is alert and able to answer questions. A focused exam of the right lower extremity was conducted. On inspection she is clean-appearing dressings over the knee and drain site. Her Hemovac drain was removed without difficulty. Her thigh and calf are soft. Femoral nerve function is intact. She is able to actively plantarflex and dorsiflex her ankle and her toes. Assessment and Plan Assessment: Postoperative day #1 status post right total knee replacement, doing well Plan: 1. Weight-bear as tolerated right lower extremity, up with assistance and a walker 2. DVT prophylaxis with aspirin 81 mg twice a day 3. 2 doses of postoperative antibiotics 4. Internal medicines assistance with perioperative medical management appreciated 5. Leave surgical dressing in place 6. Physical therapy for gait training and mobilization 7. Dispo: I like to see how the patient does this morning with physical therapy. She does well and her pain is controlled she can discharge home later today. If she needs an additional day for continued therapy and pain control she is okay to stay until tomorrow as well.
[2023-08-13] MEDS ORDERED: PANTOPRAZOLE 40 MG TABLET PO SCH (09:00)
[2023-08-13] MEDS ORDERED: buPROPion SR 150 MG TABLET.ER PO SCH (09:00)
[2023-08-13] MEDS ORDERED: ACETAMINOPHEN TAB 325 MG TAB PO SCH (09:00)
[2023-08-13] MEDS ORDERED: MULTIVITAMINS, THERA 1 EACH TAB PO SCH (09:00)
[2023-08-13 09:05] VITALS: BP 123/75; PULSE 90; TEMP 98.5
[2023-08-13] MEDS: ASPIRIN 81 MG PO SCH (09:09)
[2023-08-13 10:20] LABS: Basophils # (A) 0.01 X 10*3/uL (0.00-0.10); Basophils % (A) 0.1 %; Eosinophils # (A) 0 X 10*3/uL (0.04-0.35); Eosinophils % (A) 0 %; HCT 35.1 % (37.2-46.3); HGB 11.3 g/dL (12.0-15.0); Lymphocytes # (A) 1.14 X 10*3/uL (0.90-5.00); Lymphocytes % (A) 7.3 %; MCH 30.4 pg (27.0-32.0); MCHC 32.2 g/dL (32.0-37.0); MCV 94.4 FL (80.0-97.0); Mean Platelet Volume 10.8 FL (9.5-12.2); Monocytes # (A) 1.04 X 10*3/uL (0.20-1.00); Monocytes % (A) 6.6 %; NRBC Per 100 WBC 0 X 10*3/uL (0.00-0.01); Neutrophils # (A) 13.38 X 10*3/uL (1.80-7.70); Neutrophils % (A) 85.5 %; Platelet Count 219 X 10*3/uL (140-440); RBC 3.72 X 10*6/uL (4.10-5.20); WBC 15.65 X 10*3/uL (4.50-10.00)
--- NOTE | 2023-08-13 14:54 | P.PN ---
Subjective Progress Note Date: 08/13/23 NO new complaints. Medically cleared for discharge. Gen: awake, alert HEENT: normocephalic, atraumatic, good hearing acuity, moist mucous membranes Resp: good air exchange, breathing comfortably with no accessory muscle use CVS: good distal perfusion x 4, GI: soft, NTTP, ND : no SPT, no CVAT, bermudez catheter not present MSK: no pitting edema, no clubbing Neuro: non-focal, moving all extremities Psych: cooperative, euthymic mood Assessment: Chronic conditions: Hyperlipidemia, depression, palpitations Status post right total knee replacement Plan: Continue the following home medications: -Varapamin 100 mg po qhs -Bupropion 150 mg po qd -Pravachol 40 mg po qhs Defer management of pain control and DVT prophylaxis to primary surgery service Objective - Vital Signs Vital signs: Vital Signs Temp 98.5 F 08/13/23 07:27 Pulse 90 08/13/23 07:27 Resp 18 08/13/23 07:27 BP 123/75 08/13/23 07:27 Pulse Ox 100 08/13/23 07:27 FiO2 Intake & Output 08/12/23 08/13/23 08/13/23 18:59 06:59 18:59 Intake Total 3050 Output Total 150 580 600 Balance 2900 -580 -600 Weight 68.2 kg 68.2 kg Intake: IV 3050 Output: Drainage 80 Right Knee 80 Urine 500 600 Estimated Blood Loss 150 Other: # Voids 1 1 - Labs CBC & Chem 7: 08/13/23 06:45 Labs: Abnormal Lab Results - Last 24 Hours (Table) 08/13/23 Range/Units 06:45 WBC 15.65 H (4.50-10.00) X 10*3/uL RBC 3.72 L (4.10-5.20) X 10*6/uL Hgb 11.3 L (12.0-15.0) g/dL Hct 35.1 L (37.2-46.3) % Immature Gran # 0.08 H (0.00-0.04) X 10*3/uL Neutrophils # 13.38 H (1.80-7.70) X 10*3/uL Monocytes # 1.04 H (0.20-1.00) X 10*3/uL Eosinophils # 0 L (0.04-0.35) X 10*3/uL
[2023-08-13] MEDS ORDERED: PRAVASTATIN SODIUM 40 MG TAB PO SCH (21:00)
[2023-08-13] MEDS ORDERED: VERAPAMIL SR 120 MG TABLET.ER PO SCH (21:00)
== END 2023-08-13 13:20 | disposition home or self-care (01) ==
LOC: OR 10:50 → 4SSUR 16:32 → OR 08-13 13:20
PROVIDERS: ATTEND Orthopaedic Surgery
DX: M17.11 Unilateral primary osteoarthritis, right knee (principal); G89.18 Other acute postprocedural pain; E78.5 Hyperlipidemia, unspecified; F32.A Depression, unspecified; K21.9 Gastro-esophageal reflux disease without esophagitis; Z90.89 Acquired absence of other organs; Z98.890 Other specified postprocedural states; Z82.49 Family history of ischemic heart disease and other diseases of the circulatory system; Z82.61 Family history of arthritis; Z83.49 Family history of other endocrine, nutritional and metabolic diseases; Z79.899 Other long term (current) drug therapy
CPT/HCPCS: 0055T; 27447; 64447; 64999; 85025

== ENCOUNTER → 2024-03-12 | Outpatient (CLI) | payer MEDICARE ==
--- NOTE | 2024-03-15 08:26 | MM ---
Reason for Exam: Screening (asymptomatic). Last mammogram was performed 1 year(s) and 2 month(s) ago. Patient History: Menarche at age 12. First Full-Term at age 26. Postmenopausal. Patient has history of breast feeding. Patient used Hormonal Contraceptives for 2 years. Cyst Aspiration on the Left side. Risk Values: Gwendolyn 5 year model risk: 1.8%. NCI Lifetime model risk: 3.6%. Prior Study Comparison: 11/09/2021 Bilateral Screening Mammogram, [facility]. 05/31/2022 Left MG 3D diag mammo w/cad LT, [facility]. 01/11/2023 Bilateral MG 3D screening mammo w/cad, [facility]. Tissue Density: The breasts are heterogeneously dense, which may obscure small masses. Findings: Analyzed By CAD. Right breast: There is no suspicious group of microcalcifications or new suspicious mass. Left breast: There is no suspicious group of microcalcifications or new suspicious mass. Overall Assessment: Negative, BI-RAD 1 Management: Screening Mammogram of both breasts in [address] [facility] will attempt to contact patient to return for supplemental views and ultrasound if indicated. Patient should continue monthly self-breast exams. A clinical breast exam by your physician is recommended on an annual basis. This exam should not preclude additional follow-up of suspicious palpable abnormalities. Note on Gwendolyn scores and lifetime risk: 1. A Gwendolyn score greater than 3% is considered moderate risk. If this is the case, consider specialist referral to assess eligibility for a risk reducing agent. 2. If overall lifetime risk for the development of breast cancer is 20% or higher, the patient may qualify for future screening with alternating mammogram and breast MRI. Electronically signed and approved by: Dany Browne DO
== END | disposition home or self-care (01) ==
LOC: RADMAMWWP 12:20
PROVIDERS: ATTEND Family Medicine
DX: Z12.31 Encounter for screening mammogram for malignant neoplasm of breast (principal); Z78.0 Asymptomatic menopausal state
CPT/HCPCS: 77063; 77067

== ENCOUNTER 2025-02-14 07:10 | Day surgery (SDC) | payer MEDICARE ==
[2025-02-12 15:22] VITALS: BMI 24.2
[2025-02-14] MEDS ORDERED: LACTATED RINGERS 1,000 ML IV SCH (07:34)
--- NOTE | 2025-02-14 07:36 | P.GSHP ---
History of Present Illness H&P Date: 02/14/25 CHIEF COMPLAINT: Dysphagia and colon screen HISTORY OF PRESENT ILLNESS: The patient is a 75-year-old female who presents with dysphagia, gastroesophageal reflux disease and need for colon screen. Upper and lower endoscopy were offered for further evaluation and management. PAST MEDICAL HISTORY: Please see list. PAST SURGICAL HISTORY: Please see list. MEDICATIONS: Please see list. ALLERGIES: Please see list. SOCIAL HISTORY: No illicit drug use FAMILY HISTORY: No reports of Crohn disease or ulcerative colitis. REVIEW OF ORGAN SYSTEMS: CONSTITUTIONAL: No reports of fevers or chills. GI: Denies any blood in stools or constipation. PHYSICAL EXAM: VITAL SIGNS: Stable GENERAL: Well-developed pleasant in no acute distress. HEENT: No scleral icterus. Extraocular movements grossly intact. Moist buccal mucosa. NECK: Supple without lymphadenopathy. CHEST: Unlabored respirations. Equal bilateral excursions. CARDIOVASCULAR: Regular rate and rhythm. Distal 2+ pulses. ABDOMEN: Soft, nondistended. MUSCULOSKELETAL: No clubbing, cyanosis, or edema. ASSESSMENT: 1. Dysphagia and gastroesophageal reflux disease 2. Colon screen. PLAN: 1. Recommend proceeding with an upper and lower endoscopy Past Medical History Past Medical History: GERD/Reflux, Hyperlipidemia, Hypertension, Sleep Apnea/CPAP/BIPAP, Supraventricular Tachycardia (SVT) Additional Past Medical History / Comment(s): SVT,uses cpap History of Any Multi-Drug Resistant Organisms: None Reported Past Surgical History: Adenoidectomy, Orthopedic Surgery, Tonsillectomy Additional Past Surgical History / Comment(s): colonoscopy, lft foot dislocated toe surgery, total right knee Past Anesthesia/Blood Transfusion Reactions: Motion Sickness Additional Past Anesthesia/Blood Transfusion Reaction / Comment(s): no hx blood transfusion Smoking Status: Never smoker - Past Family History Father Family Medical History: Myocardial Infarction (DE) Additional Family Medical History / Comment(s): passe away at age 52 Mother Family Medical History: Osteoarthritis (OA), Thyroid Disorder Additional Family Medical History / Comment(s): living 95 Medications and Allergies Home Medications Medication Instructions Recorded Confirmed Type Multivit-Min/Iron/Folic/Lutein 1 each PO DAILY 04/12/16 02/12/25 History [Centrum Silver Women Tablet] Pravastatin Sodium 40 mg PO HS 04/12/16 02/12/25 History RABEprazole SODIUM [Aciphex] 20 mg PO QAM 04/12/16 02/12/25 History Verapamil HCl [Verapamil ER Pm] 100 mg PO HS 04/12/16 02/12/25 History buPROPion HCL [Bupropion HCl Sr] 150 mg PO QAM 04/12/16 02/12/25 History Acetaminophen [Tylenol Arthritis] 650 mg PO BID 08/08/23 02/12/25 History Alendronate Sodium 70 mg PO WE 08/08/23 02/12/25 History valACYclovir HCL [Valacyclovir] 2,000 mg PO BID PRN 08/08/23 02/12/25 History Docusate [Colace] 100 mg PO DAILY PRN 02/12/25 02/12/25 History Allergies Allergy/AdvReac Type Severity Reaction Status Date / Time thimerosal Allergy "eyes burn Verified 02/12/25 15:10 and water with swelling" chlorthalidone AdvReac Rapid Verified 02/12/25 15:10 Heart Rate niacin AdvReac "hot Verified 02/12/25 15:10 flashes"
[2025-02-14] MEDS: LACTATED RINGERS 1,000 ML IV ONE (07:55)
[2025-02-14 08:02] VITALS: TEMP 98
[2025-02-14] MEDS ORDERED: LIDOCAINE 1% INJ 10MG/ML (20 ML MDV) ONE (08:08)
[2025-02-14] MEDS ORDERED: PROPOFOL 10 MG/ML 20 ML VIAL IV ONE (08:08)
--- NOTE | 2025-02-14 08:27 | P.PCN ---
Date of Procedure: 02/14/25 Description of Procedure: PREOPERATIVE DIAGNOSIS: Dysphagia POSTOPERATIVE DIAGNOSIS: Gastroesophageal reflux disease. Gastritis. Diaphragmatic hiatal hernia Presbyesophagus Upper esophageal stenosis Gastric polyps Duodenal ulcer OPERATION: Esophagogastroduodenoscopy with rigid dilation over guidewire, 54 Welsh Esophagogastroduodenoscopy with cold forceps biopsies along esophagus, antrum and duodenum SURGEON: Sunita Locke MD ANESTHESIA: MAC. INDICATIONS: The patient is a 75-year-old female who presents with dysphagia and reflux disease. Benefits and risks of the procedure were described. Informed consent was obtained. DESCRIPTION: The patient was brought into the endoscopy suite and laid in the left lateral decubitus position. An Olympus gastroscope was passed along the posterior oropharynx down to the distal esophagus where the squamocolumnar junction was encountered at 39 cm from the incisors. The stomach was entered and no bile reflux was found. Next, a guidewire was placed through the scope. The scope was removed. A 54 Welsh Chinese rigid dilator was placed over the guidewire and left for 2 minutes. The guidewire and dilator were removed. Scope was reentered. Additional findings are listed below. Biopsies with cold forceps were obtained of the antrum. The first through third portion of the duodenum was examined. Retroflexion of the scope confirmed Hill grade 3 lower esophageal valve. The squamocolumnar junction demonstrated LA grade B erosive esophagitis. The stomach was desufflated. The patient tolerated the procedure well. FINDINGS: Squamocolumnar junction 39 cm from the incisors. Diaphragmatic hiatus at 40 cm. Hiatal hernia, 1 cm Hill grade 3 lower esophageal valve. LA grade B erosive esophagitis. Cold forcep biopsies Biopsies obtained of the duodenum. Chronic gastritis with biopsies obtained. Upper esophageal stenosis, dilated Tertiary contractions consistent with presbyesophagus Multiple benign gastric polyps along gastric cardia and body Duodenal ulcer 2 mm first portion without bleeding biopsied RECOMMENDATIONS: Omeprazole 40 mg daily for 2 weeks Upper endoscopy with dilation as needed
[2025-02-14 09:10] VITALS: BP 122/75; PULSE 74; RESP 14
--- NOTE | 2025-02-14 09:43 | P.PCN ---
Date of Procedure: 02/14/25 Description of Procedure: PREOPERATIVE DIAGNOSIS: Personal history of colon polyps Colonoscopy screening POSTOPERATIVE DIAGNOSIS: Tubular adenoma ascending colon Tubular adenoma transverse colon Sigmoid diverticulosis, severe Internal hemorrhoids, grade 2 OPERATION: Colonoscopy to the ileocecal valve and appendiceal orifice, cecum Colonoscopy with cold forceps biopsy SURGEON: Sunita Locke MD. ANESTHESIA: MAC. INDICATIONS: The patient is an 75-year-old male who presents personal history of colon polyps. Last colonoscopy 5 years. Benefits and risks were described and informed consent was obtained. DESCRIPTION OF PROCEDURE: The patient had undergone Suprep including Dulcolax including lactulose at least for 5 to 7 days due to severe constipation. The patient had been brought into the operating room and laid in the left lateral decubitus position. After adequate intravenous sedation, the rectum was examined with 2% lidocaine jelly. External hemorrhoids were encountered. The rectal tone was within normal limits. No lesions were palpated in the rectal vault. An Olympus colonoscope was advanced until the cecum, ileocecal valve and appendiceal orifice were clearly viewed. The prep was fair. Severe sigmoid diverticulosis was encountered. Colonic polyps were found and removed. No evidence of focal colitis was found. Retroflexion of the scope demonstrated grade 2 internal hemorrhoids without active bleeding or inflammation. The colon was desufflated. The patient had tole rated the procedure well. Withdrawal time was over 6 minutes. FINDINGS: Aronchick preparation quality scale 2 (1-5) Internal hemorrhoids, grade 2 External hemorrhoids, grade 2. No arteriovenous malformations. Sigmoid diverticulosis, severe Highly redundant sigmoid colon requiring abdominal wall pressure Removal of 2 polyps: - Cold forceps biopsy ascending colon, 4 mm adenoma - Cold forceps biopsy transverse colon, 5 mm adenoma No focal colitis. RECOMMENDATIONS: Repeat colonoscopy 3 years, 2027 May benefit from colectomy Plan - Discharge Summary Discharge Rx Participant: No New Discharge Prescriptions: Continue buPROPion HCL [Bupropion HCl Sr] 150 mg PO QAM Multivit-Min/Iron/Folic/Lutein [Centrum Silver Women Tablet] 1 each PO DAILY Verapamil HCl [Verapamil ER PM] 100 mg PO HS RABEprazole SODIUM [Aciphex] 20 mg PO QAM Pravastatin Sodium 40 mg PO HS Acetaminophen [Tylenol Arthritis] 650 mg PO BID Docusate [Colace] 100 mg PO DAILY PRN PRN Reason: Constipation valACYclovir HCL [Valacyclovir] 2,000 mg PO BID PRN PRN Reason: Cold Sores Alendronate Sodium 70 mg PO WE Discharge Medication List Multivit-Min/Iron/Folic/Lutein [Centrum Silver Women Tablet] 1 each PO DAILY 04/12/16 [History] Pravastatin Sodium 40 mg PO HS 04/12/16 [History] RABEprazole SODIUM [Aciphex] 20 mg PO QAM 04/12/16 [History] Verapamil HCl [Verapamil ER PM] 100 mg PO HS 04/12/16 [History] buPROPion HCL [Bupropion HCl Sr] 150 mg PO QAM 04/12/16 [History] Acetaminophen [Tylenol Arthritis] 650 mg PO BID 08/08/23 [History] Alendronate Sodium 70 mg PO WE 08/08/23 [History] valACYclovir HCL [Valacyclovir] 2,000 mg PO BID PRN 08/08/23 [History] Docusate [Colace] 100 mg PO DAILY PRN 02/12/25 [History] Follow up Appointment(s)/Referral(s): Sunita Locke MD [STAFF PHYSICIAN] - 03/12/25 1:00 pm Patient Instructions/Handouts: Diverticulosis Diet (GEN), Colorectal Polyps (GEN) Activity/Diet/Wound Care/Special Instructions: Repeat colonoscopy 3 years, 2027. Discharge Disposition: HOME SELF-CARE
== END 2025-02-14 10:18 | disposition home or self-care (01) ==
LOC: ORWHC2ENDO 07:10
PROVIDERS: ATTEND Surgery Plastic and Reconstructive Surgery
DX: Z12.11 Encounter for screening for malignant neoplasm of colon (principal); Z86.0100 Personal history of colon polyps, unspecified; D12.2 Benign neoplasm of ascending colon; D12.3 Benign neoplasm of transverse colon; K57.30 Diverticulosis of large intestine without perforation or abscess without bleeding; K64.1 Second degree hemorrhoids; K21.9 Gastro-esophageal reflux disease without esophagitis; K44.9 Diaphragmatic hernia without obstruction or gangrene; K22.2 Esophageal obstruction; K29.50 Unspecified chronic gastritis without bleeding; K26.9 Duodenal ulcer, unspecified as acute or chronic, without hemorrhage or perforation; K31.7 Polyp of stomach and duodenum; E78.5 Hyperlipidemia, unspecified; G47.30 Sleep apnea, unspecified; I10 Essential (primary) hypertension; Z79.899 Other long term (current) drug therapy
CPT/HCPCS: 88305; 45380; 43239; 43248; J2003; J2704